=== PATIENT | male | born 1950 | race Caucasian/White ===

== ENCOUNTER 2020-12-12 13:38 | Emergency (ER) | payer SELFPAY ==
[~2020-12-12] VITALS: Ht 185 cm; Wt 185.0 kg
[2020-12-12] MEDS ORDERED: ENOXAPARIN 80 MG/0.8 ML (LOVENOX) SYR SC ONE (14:00)
[2020-12-12 14:05] LABS: BASOPHILS # (AUTO) 0.1 10^3/uL (0.0-0.1); BASOPHILS % (AUTO) 1 % (0-10); EOSINOPHILS # (AUTO) 0.1 10^3/uL (0.0-0.3); EOSINOPHILS % (AUTO) 2 % (0-10); HEMATOCRIT 39 % (40-54); HEMOGLOBIN 12.1 g/dL (13.3-17.7); LYMPHOCYTES % (AUTO) 31 % (12-44); MEAN CORPUSCULAR HEMOGLOBIN 27 pg (25-34); MEAN CORPUSCULAR HGB CONC 31 g/dL (32-36); MEAN CORPUSCULAR VOLUME 87 fL (80-99); MEAN PLATELET VOLUME 10.7 fL (9.0-12.2); MONOCYTES # (AUTO) 0.5 10^3/uL (0.0-1.0); MONOCYTES % (AUTO) 8 % (0-12); NEUTROPHILS # (AUTO) 3.8 10^3/uL (1.8-7.8); NEUTROPHILS % (AUTO) 59 % (42-75); PLATELET COUNT 226 10^3/uL (130-400); WHITE BLOOD COUNT 6.5 10^3/uL (4.3-11.0)
[2020-12-12 14:18] LABS: CHLORIDE 108 MMOL/L (98-107); SODIUM 141 MMOL/L (135-145)
[2020-12-12 14:19] LABS: CALCIUM 8.6 MG/DL (8.5-10.1); INR 0.9 (0.8-1.4); PROTHROMBIN TIME PATIENT 12.8 SEC (12.2-14.7)
[2020-12-12 14:20] LABS: GLUCOSE 109 MG/DL (70-105)
[2020-12-12 14:21] LABS: TOTAL PROTEIN 6.8 GM/DL (6.4-8.2)
[2020-12-12 14:22] LABS: BILIRUBIN,TOTAL 0.2 MG/DL (0.1-1.0); CARBON DIOXIDE 24 MMOL/L (21-32)
[2020-12-12 14:24] LABS: ALKALINE PHOSPHATASE 63 U/L (40-136); GFR ESTIMATED > 60
[2020-12-12 14:25] LABS: BUN/CREATININE RATIO 27
[2020-12-12 14:27] LABS: ALANINE AMINOTRANSFERASE 18 U/L (0-55); MAGNESIUM 2.6 MG/DL (1.6-2.4)
--- NOTE | 2020-12-12 14:29 | Diagnostic Imaging Report ---
INDICATION: Chest pain. FINDINGS: Lungs are clear. Cardiomediastinal and hilar contours are normal. No failure, effusion, or pneumothorax. IMPRESSION: Normal frontal chest. Dictated by: Dictated on workstation # [id number]
--- NOTE | 2020-12-12 14:46 | ED Chest Pain ---
General Chief Complaint: Cardiac/General Problems Stated Complaint: AFIB Nursing Triage Note: [facility] AFIB Nursing Sepsis Screen: No Definite Risk Source: patient Exam Limitations: no limitations History of Present Illness Date Seen by Provider: Dec 12, 2020 Time Seen by Provider: 13:48 Initial Comments Here with report of anxious feeling throughout his body and pinpoint chest pain at the area of the left breast. Has been going on throughout the day. Went to [facility] and found to be in atrial fibrillation with rapid ventricular response. Patient does not normally have that. Patient did take 325 mg of aspirin this morning because of this. Does have concerns about radio magnetic interference of the body and tries to stay away from towns and congested areas where that is increased. Eats organically and tries to stay healthy. Not currently on any medications and has only had 1 surgery for tonsils in his lifetime. States chest pain is fleeting and intermittent. Patient noted to be in atrial fibrillation with rapid ventricular response on arrival. Timing/Duration: changing over time, 12-24 hours Severity/Quality: mild, sharp Location: central (Left breast) Radiation: no radiation Prior CP/Workup: no prior chest pain, no prior cardiac workup ASA po HEATER INSTALLER: Yes NTG SL HEATER INSTALLER: No Associated Symptoms: No back pain, No diaphoresis, No dizziness, No fever/ chills, No nausea/vomiting, No shortness of breath, No weakness Allergies and Home Medications Allergies Coded Allergies: No Known Drug Allergies (Unverified , 12/12/20) Patient Home Medication List Home Medication List Reviewed: Yes Review of Systems Review of Systems Constitutional: see HPI; No chills, No fever EENTM: No Nose Congestion, No Throat Pain Respiratory: Denies Cough, Denies Shortness of Air Cardiovascular: Chest Pain, Irregular Heart Rate, Palpitations Gastrointestinal: Denies Nausea, Denies Vomiting Genitourinary: No Symptoms Reported Musculoskeletal: No back pain, No muscle pain Skin: no symptoms reported Psychiatric/Neurological: Anxiety; Denies Headache, Denies Weakness All Other Systems Reviewed Negative Unless Noted: Yes Past Zmpihus-Xqlnur-Bvtcwj Hx Past Med/Social Hx: Reviewed Nursing Past Med/Soc Hx Patient Social History Alcohol Use: Denies Use Smoking Status: Never a Smoker Recent Infectious Disease Expo: No Past Medical History Surgeries: Yes Adenoidectomy, Tonsillectomy Respiratory: No Cardiac: No Neurological: No Genitourinary: No Gastrointestinal: No Musculoskeletal: No Endocrine: No HEENT: No Cancer: No Psychosocial: No Family Medical History Reviewed Nursing Family Hx No Pertinent Family Hx Physical Exam Vital Signs Vital Signs - First Documented 12/12/20 13:42 Temp 36.6 Pulse 117 Resp 18 B/P (MAP) 131/95 (107) Pulse Ox 100 Capillary Refill : Less Than 3 Seconds Height, Weight, BMI Height: '" Weight: lbs. oz. kg; 54.00 BMI Method: General Appearance: No Apparent Distress, WD/WN HEENT: PERRL/EOMI, Pharynx Normal Neck: Non Tender, Supple Respiratory: Lungs Clear, Normal Breath Sounds Cardiovascular: Irregularly Irregular, Tachycardia Gastrointestinal: Non Tender, Soft Extremity: Normal Range of Motion, Non Tender Neurologic/Psychiatric: Alert, Oriented x3 Skin: Normal Color, Warm/Dry Progress/Results/Core Measures Results/Orders Lab Results Laboratory Tests Test 12/12/20 13:50 Range/Units White Blood Count 6.5 4.3-11.0 10^3/uL Red Blood Count 4.46 4.30-5.52 10^6/uL Hemoglobin 12.1 L 13.3-17.7 g/dL Hematocrit 39 L 40-54 % Mean Corpuscular Volume 87 80-99 fL Mean Corpuscular Hemoglobin 27 25-34 pg Mean Corpuscular Hemoglobin Concent 31 L 32-36 g/dL Red Cell Distribution Width 17.2 H 10.0-14.5 % Platelet Count 226 130-400 10^3/uL Mean Platelet Volume 10.7 9.0-12.2 fL Immature Granulocyte % (Auto) 0 % Neutrophils (%) (Auto) 59 42-75 % Lymphocytes (%) (Auto) 31 12-44 % Monocytes (%) (Auto) 8 0-12 % Eosinophils (%) (Auto) 2 0-10 % Basophils (%) (Auto) 1 0-10 % Neutrophils # (Auto) 3.8 1.8-7.8 10^3/uL Lymphocytes # (Auto) 2.0 1.0-4.0 10^3/uL Monocytes # (Auto) 0.5 0.0-1.0 10^3/uL Eosinophils # (Auto) 0.1 0.0-0.3 10^3/uL Basophils # (Auto) 0.1 0.0-0.1 10^3/uL Immature Granulocyte # (Auto) 0.0 0.0-0.1 10^3/uL Prothrombin Time 12.8 12.2-14.7 SEC INR Comment 0.9 0.8-1.4 Activated Partial Thromboplast Time 27 24-35 SEC Sodium Level 141 135-145 MMOL/L Potassium Level 4.0 3.6-5.0 MMOL/L Chloride Level 108 H 98-107 MMOL/L Carbon Dioxide Level 24 21-32 MMOL/L Anion Gap 9 5-14 MMOL/L Blood Urea Nitrogen 27 H 7-18 MG/DL Creatinine 1.00 0.60-1.30 MG/DL Estimat Glomerular Filtration Rate > 60 BUN/Creatinine Ratio 27 Glucose Level 109 H 70-105 MG/DL Calcium Level 8.6 8.5-10.1 MG/DL Corrected Calcium 8.6 8.5-10.1 MG/DL Magnesium Level 2.6 H 1.6-2.4 MG/DL Total Bilirubin 0.2 0.1-1.0 MG/DL Aspartate Amino Transf (AST/SGOT) 22 5-34 U/L Alanine Aminotransferase (ALT/SGPT) 18 0-55 U/L Alkaline Phosphatase 63 40-136 U/L Myoglobin 46.7 10.0-92.0 NG/ML Troponin I < 0.028 <0.028 NG/ML B-Type Natriuretic Peptide 246.6 H <100.0 PG/ML Total Protein 6.8 6.4-8.2 GM/DL Albumin 4.0 3.2-4.5 GM/DL My Orders Orders - LAYLA QUINTERO MD Metoprolol Succinate (Xl) Tab (Toprol Xl (12/12/20 14:00) Enoxaparin Injection (Lovenox Injection) (12/12/20 14:00) Medications Given in ED Current Medications Medications Dose Ordered Sig/Obie Route Start Time Stop Time Status Last Admin Dose Admin Enoxaparin Sodium 70 mg ONCE ONCE SC 12/12/20 14:00 12/12/20 14:01 DC 12/12/20 14:17 70 MG Metoprolol Succinate 25 mg ONCE ONCE PO 12/12/20 14:00 12/12/20 14:01 DC 12/12/20 14:16 25 MG Vital Signs/I&O 12/12/20 13:42 Temp 36.6 Pulse 117 Resp 18 B/P (MAP) 131/95 (107) Pulse Ox 100 Blood Pressure Mean: 107 Progress Progress Note : Progress Note Seen and evaluated. IV, labs, EKG, chest x-ray ordered. No ASA as patient had that already today. No need for nitro as he has no chest pain. 1353: Patient converted on own to sinus rhythm. 1357: I did discuss the case with Dr. Gonsalez. We will initiate Toprol-XL 25 mg p.o. now as well as Lovenox 70 mg subcu (1 mg/kg) and evaluate labs. If patient remains in sinus rhythm, we will consider outpatient therapy if labs are okay and have him follow-up with Dr. Gonsalez this week. Patient would prefer this if at all possible. Monitor patient. 1500: I did review the case with Dr. Verduzco after labs reviewed. No significant findings currently. We will continue him outpatient Eliquis 5 mg p.o. twice daily as well as Toprol-XL 25 mg daily. I have made a call to [facility] to see if they can prescribe since he was seen there today. Discharged home with return precautions. Patient verbalized understanding of instructions and agreement with plan. Initial ECG Impression Date: Dec 12, 2020 Initial ECG Impression Time: 13:45 Initial ECG Rate: 113 Initial ECG Rhythm: A Fib/Flutter Initial ECG Impression: Atrial Fibrillation w/RVR Comment Atrial fibrillation with rapid ventricular response. Normal axis. No evidence of ST elevation [place]. No previous available for comparison. Interpreted by me. Diagnostic Imaging Diagonstic Imaging: Xray Plain Films/CT/US/NM/MRI: chest Comments [facility] [place], [place] NAME: ROBERT BOWERS [facility] REC#: [id number] PT STATUS: REG ER : 1950 PHYSICIAN: ROBERT PEÑALOZA APRN ADMIT DATE: 12/12/20/ER Draft Date of Exam:12/12/20 CHEST 1 VIEW, AP/PA ONLY INDICATION: Chest pain. FINDINGS: Lungs are clear. Cardiomediastinal and hilar contours are normal. No failure, effusion, or pneumothorax. IMPRESSION: Normal frontal chest. Dictated on workstation # [id number] Dict: 12/12/20 1425 Trans: 12/12/20 1429 [id number] [id number] Interpreted by: DEENA SCHAFFER Electronically signed by: Departure Impression Primary Impression: Paroxysmal atrial fibrillation Disposition: 01 HOME, SELF-CARE Condition: Improved Departure-Patient Inst. Decision time for Depature: 15:04 Referrals: JUSTINA GARCIA MD, BASHAR J MD NO,LOCAL PHYSICIAN (PCP) Primary Care Physician Patient Instructions: Atrial Fibrillation (DC) Add. Discharge Instructions: All discharge instructions reviewed with patient and/or family. Voiced understanding. You need to call and make appointment with Dr. Gonsalez for next week. Call his office today or first thing in the morning for appointment next week and let them know that the case was discussed with him and he wants to see you then. Take medications as directed. Follow-up with [facility] for recheck and further evaluation as well. They should call you for appointment but you may need to call in a few days if you have not heard from them. Return for worse pain, breathing problems, weakness or other concerns as needed. Copy Copies To 1: NATALYA VERDUZCO MD Copies To 2: JUSTINA GARCIA MD, TIMOTHY D MD Dec 12, 2020 14:46
[2020-12-12 15:20] VITALS: BP 129/92
== END 2020-12-12 15:26 | disposition home or self-care (01) ==
LOC: ER 13:41
DX: I48.0 Paroxysmal atrial fibrillation (principal); F41.9 Anxiety disorder, unspecified
CPT/HCPCS: 36415; 71045; 80053; 83735; 83874; 83880; 84484; 85025; 85610; 85730; 93005; 93041

== ENCOUNTER 2021-06-04 11:48 | Emergency (ER) | payer OTHER ==
[~2021-06-04] VITALS: Ht 180.3 cm; Wt 70.0 kg
[2021-06-04 12:12] LABS: BASOPHILS # (AUTO) 0.1 10^3/uL (0.0-0.1); BASOPHILS % (AUTO) 1 % (0-10); EOSINOPHILS % (AUTO) 1 % (0-10); HEMATOCRIT 34 % (40-54); HEMOGLOBIN 10.1 g/dL (13.3-17.7); LYMPHOCYTES # (AUTO) 1.3 10^3/uL (1.0-4.0); LYMPHOCYTES % (AUTO) 24 % (12-44); MEAN CORPUSCULAR HEMOGLOBIN 24 pg (25-34); MEAN CORPUSCULAR HGB CONC 30 g/dL (32-36); MEAN CORPUSCULAR VOLUME 80 fL (80-99); MEAN PLATELET VOLUME 10.2 fL (9.0-12.2); MONOCYTES # (AUTO) 0.5 10^3/uL (0.0-1.0); MONOCYTES % (AUTO) 9 % (0-12); NEUTROPHILS # (AUTO) 3.5 10^3/uL (1.8-7.8); NEUTROPHILS % (AUTO) 66 % (42-75); PLATELET COUNT 240 10^3/uL (130-400); WHITE BLOOD COUNT 5.4 10^3/uL (4.3-11.0)
[2021-06-04] MEDS ORDERED: ASPIRIN 81 MG CHEW (CHILDREN'S ASA) PO ONE (12:15)
[2021-06-04 12:34] LABS: CHLORIDE 106 MMOL/L (98-107); INR 1.1 (0.8-1.4); POTASSIUM 4.4 MMOL/L (3.6-5.0); PROTHROMBIN TIME PATIENT 14.3 SEC (12.2-14.7); SODIUM 139 MMOL/L (135-145)
[2021-06-04 12:35] LABS: CALCIUM 8.6 MG/DL (8.5-10.1)
[2021-06-04 12:36] LABS: GLUCOSE 101 MG/DL (70-105); TOTAL PROTEIN 6.5 GM/DL (6.4-8.2)
[2021-06-04 12:37] LABS: CARBON DIOXIDE 22 MMOL/L (21-32)
[2021-06-04 12:38] LABS: BILIRUBIN,TOTAL 0.3 MG/DL (0.1-1.0)
[2021-06-04 12:40] LABS: ALKALINE PHOSPHATASE 69 U/L (40-136); CREATININE SERUM 0.97 MG/DL (0.60-1.30); GFR ESTIMATED 76
[2021-06-04 12:41] LABS: BUN/CREATININE RATIO 21
[2021-06-04 12:43] LABS: ALANINE AMINOTRANSFERASE 22 U/L (0-55); MAGNESIUM 2.4 MG/DL (1.6-2.4)
--- NOTE | 2021-06-04 12:43 | Diagnostic Imaging Report ---
INDICATION: Chest pain. TECHNIQUE: Single AP view of the chest is obtained with comparison made to study of 12/12/2020. FINDINGS: Heart size is at the upper limits of normal. Pulmonary vascularity is unremarkable. There is air trapping in the upper lobes, bilaterally. There is an approximately 1 cm nodular focus in the left suprahilar region which was not clearly evident on the previous study. No other infiltrate or significant pleural abnormality is identified. IMPRESSION: Background emphysema with possible developing nodule in the left suprahilar region. CT imaging of the chest is recommended for assessment. Dictated by: Dictated on workstation # [id number]
--- NOTE | 2021-06-04 13:50 | ED Chest Pain ---
General Chief Complaint: Chest Pain Stated Complaint: CHEST PRESSURE Nursing Triage Note: Pt ambulatory into ER with complaint of Intermittent Chest Pressure x1 Month. Pt states that it seems to be worse when its hot. Pt states that he is camping without AC. Pt states that today its at a 2/10. Pt states that he was at [facility] and they sent him here. Source: patient Exam Limitations: no limitations History of Present Illness Date Seen by Provider: Jun 04, 2021 Time Seen by Provider: 12:35 Initial Comments Here with report of intermittent chest pressure over the last month that is noted more with activity and resolves with rest. Does have history of atrial fibrillation. He is on Eliquis and takes that as prescribed. He is also on metoprolol that he takes as prescribed. He went to [facility] today and was noted to have intermittent chest pressure there. He had a pressure of 2 out of 10 and was sent here for further evaluation. He does follow with Dr. Sommers at [facility]. Timing/Duration: intermittent, other (1 month) Severity/Quality: mild, pressure Location: central (Left-sided) Radiation: no radiation Activities at Onset: activity Prior CP/Workup: no prior chest pain Modifying Factors: worse with exercise; improves with rest ASA po SOCIAL SCIENCE PROFESSOR: No NTG SL SOCIAL SCIENCE PROFESSOR: No Associated Symptoms: No abdominal pain, No diaphoresis, No dizziness, No fatigue, No fever/chills, No heartburn, No nausea/vomiting, No shortness of breath, No weakness Allergies and Home Medications Allergies Coded Allergies: No Known Drug Allergies (Unverified , 12/12/20) Patient Home Medication List Home Medication List Reviewed: Yes Review of Systems Review of Systems Constitutional: see HPI; No chills, No fever EENTM: No Symptoms Reported Respiratory: See HPI Cardiovascular: See HPI Gastrointestinal: No Symptoms Reported Genitourinary: No Symptoms Reported All Other Systems Reviewed Negative Unless Noted: Yes Past Jzmknop-Hncbzr-Xjhsqg Hx Patient Social History Tobacco Use?: No Use of E-Cig and/or Vaping dev: No Substance use?: No Alcohol Use?: No Pt feels they are or have been: No Immunizations Up To Date Influenza Vaccine Up-to-Date: No; Not Current Past Medical History Surgeries: Yes Adenoidectomy, Tonsillectomy Respiratory: No Cardiac: No Neurological: No Genitourinary: No Gastrointestinal: No Musculoskeletal: No Endocrine: No HEENT: No Cancer: No Psychosocial: No Integumentary: No Family Medical History Reviewed Nursing Family Hx No Pertinent Family Hx Physical Exam Vital Signs Vital Signs - First Documented Capillary Refill : Less Than 3 Seconds Height, Weight, BMI Height: '" Weight: lbs. oz. kg; 21.00 BMI Method: General Appearance: No Apparent Distress, WD/WN HEENT: PERRL/EOMI, Pharynx Normal Neck: Non Tender, Supple Respiratory: Lungs Clear, Normal Breath Sounds Cardiovascular: No Murmur, Irregularly Irregular Gastrointestinal: Non Tender, Soft Extremity: Normal Range of Motion, Non Tender Neurologic/Psychiatric: Alert, Oriented x3 Skin: Normal Color, Warm/Dry Progress/Results/Core Measures Results/Orders Lab Results Laboratory Tests Test 06/04/21 12:06 Range/Units White Blood Count 5.4 4.3-11.0 10^3/uL Red Blood Count 4.18 L 4.30-5.52 10^6/uL Hemoglobin 10.1 L 13.3-17.7 g/dL Hematocrit 34 L 40-54 % Mean Corpuscular Volume 80 80-99 fL Mean Corpuscular Hemoglobin 24 L 25-34 pg Mean Corpuscular Hemoglobin Concent 30 L 32-36 g/dL Red Cell Distribution Width 16.4 H 10.0-14.5 % Platelet Count 240 130-400 10^3/uL Mean Platelet Volume 10.2 9.0-12.2 fL Immature Granulocyte % (Auto) 0 % Neutrophils (%) (Auto) 66 42-75 % Lymphocytes (%) (Auto) 24 12-44 % Monocytes (%) (Auto) 9 0-12 % Eosinophils (%) (Auto) 1 0-10 % Basophils (%) (Auto) 1 0-10 % Neutrophils # (Auto) 3.5 1.8-7.8 10^3/uL Lymphocytes # (Auto) 1.3 1.0-4.0 10^3/uL Monocytes # (Auto) 0.5 0.0-1.0 10^3/uL Eosinophils # (Auto) 0.0 0.0-0.3 10^3/uL Basophils # (Auto) 0.1 0.0-0.1 10^3/uL Immature Granulocyte # (Auto) 0.0 0.0-0.1 10^3/uL Prothrombin Time 14.3 12.2-14.7 SEC INR Comment 1.1 0.8-1.4 Activated Partial Thromboplast Time 31 24-35 SEC Sodium Level 139 135-145 MMOL/L Potassium Level 4.4 3.6-5.0 MMOL/L Chloride Level 106 98-107 MMOL/L Carbon Dioxide Level 22 21-32 MMOL/L Anion Gap 11 5-14 MMOL/L Blood Urea Nitrogen 20 H 7-18 MG/DL Creatinine 0.97 0.60-1.30 MG/DL Estimat Glomerular Filtration Rate 76 BUN/Creatinine Ratio 21 Glucose Level 101 70-105 MG/DL Calcium Level 8.6 8.5-10.1 MG/DL Corrected Calcium 8.6 8.5-10.1 MG/DL Magnesium Level 2.4 1.6-2.4 MG/DL Total Bilirubin 0.3 0.1-1.0 MG/DL Aspartate Amino Transf (AST/SGOT) 23 5-34 U/L Alanine Aminotransferase (ALT/SGPT) 22 0-55 U/L Alkaline Phosphatase 69 40-136 U/L Myoglobin 73.8 10.0-92.0 NG/ML Troponin I < 0.028 <0.028 NG/ML B-Type Natriuretic Peptide 457.6 H <100.0 PG/ML Total Protein 6.5 6.4-8.2 GM/DL Albumin 4.0 3.2-4.5 GM/DL My Orders Orders - LAYLA QUINTERO MD Cbc With Automated Diff (06/04/21 12:02) Magnesium (06/04/21 12:02) Chest 1 View, Ap/Pa Only (06/04/21 12:02) Ekg Tracing (06/04/21 12:02) Comprehensive Metabolic Panel (06/04/21 12:02) Myoglobin Serum (06/04/21 12:02) Protime With Inr (06/04/21 12:02) Partial Thromboplastin Time (06/04/21 12:02) O2 (06/04/21 12:02) Monitor-Rhythm Ecg Trace Only (06/04/21 12:02) Lipid Panel (06/05/21 06:00) Ed Iv/Invasive Line Start (06/04/21 12:02) BNP (06/04/21 12:02) Aspirin Chewable Tablet (Baby Aspirin Ch (06/04/21 12:15) Troponin I (06/04/21 12:06) Ct Chest Wo (06/04/21 13:57) Medications Given in ED Current Medications Medications Dose Ordered Sig/Obie Route Start Time Stop Time Status Last Admin Dose Admin Aspirin 324 mg ONCE ONCE PO 06/04/21 12:15 06/04/21 12:16 DC 06/04/21 12:36 324 MG Vital Signs/I&O 06/04/21 06/04/21 12:55 12:55 Temp 36.7 Pulse 89 Resp 20 B/P (MAP) 165/100 (121) Pulse Ox 100 O2 Delivery Room Air Room Air Blood Pressure Mean: 121 Progress Progress Note : Progress Note Seen and evaluated. IV, labs, EKG and chest x-ray ordered. Monitor patient. 1325: X-ray reviewed and there is lung nodule that is new from December of that radiology is recommending CT scan on. I did discuss this with the patient and his family. He is hesitant but would like to think about it more. 1355: Patient did discuss financial assistance with the registration team and ultimately has decided to go ahead and do CT scan. He is hesitant due to concerns about electromechanical interference. That being said he is also concerned about the nodule and will go ahead and get the CT scan. Initial labs and work-up are nonconcerning and patient has known atrial fibrillation that is currently controlled with metoprolol and Eliquis. Monitor patient. 1530: CT scan complete and nodule on x-ray is not showing up on CT scan and believed to be superimposed tissue. Another benign nodule noted. Overall he is without chest pain and feeling better now. He has appointment with Dr. Verduzco on the and will keep that. I will send a copy of the chart to him. Discharged home with return precautions. Patient verbalized understanding instructions and agreement with plan. Initial ECG Impression Date: Jun 04, 2021 Initial ECG Impression Time: 11:57 Initial ECG Rate: 109 Initial ECG Rhythm: A Fib/Flutter Initial ECG Comparisson: Unchanged (Similar to previous of 12/12/2020.) Comment Atrial fibrillation with PVC noted. Normal axis. No evidence of ST elevation [place]. Interpreted by me. Diagnostic Imaging Diagonstic Imaging: Xray Plain Films/CT/US/NM/MRI: chest Comments [facility] [place], [place] NAME: ROBERT BOWERS [facility] REC#: [id number] PT STATUS: REG ER : 1950 PHYSICIAN: LAYLA QUINTERO MD ADMIT DATE: 06/04/21/ER Signed Date of Exam:06/04/21 CHEST 1 VIEW, AP/PA ONLY INDICATION: Chest pain. TECHNIQUE: Single AP view of the chest is obtained with comparison made to study of 12/12/2020. FINDINGS: Heart size is at the upper limits of normal. Pulmonary vascularity is unremarkable. There is air trapping in the upper lobes, bilaterally. There is an approximately 1 cm nodular focus in the left suprahilar region which was not clearly evident on the previous study. No other infiltrate or significant pleural abnormality is identified. IMPRESSION: Background emphysema with possible developing nodule in the left suprahilar region. CT imaging of the chest is recommended for assessment. Dictated by: Dictated on workstation # [id number] Dict: 06/04/21 1239 Trans: 06/04/21 1318 AS6 [id number] Interpreted by: DEENA BRAND MD Electronically signed by: DEENA BRAND MD 06/04/21 1318 Diagonstic Imaging: CT Plain Films/CT/US/NM/MRI: chest Comments [facility] [address]. [place], [place] NAME: ROBERT BOWERS [facility] REC#: [id number] PT STATUS: REG ER : 1950 PHYSICIAN: LAYLA QUINTERO MD ADMIT DATE: 06/04/21/ER Draft Date of Exam:06/04/21 CT CHEST WO PROCEDURE: CT chest without contrast. TECHNIQUE: Multiple contiguous axial images were obtained through the chest without the use of intravenous contrast. Auto Exposure Controls were utilized during the CT exam to meet ALARA standards for radiation dose reduction. INDICATION: Lung nodule COMPARISON: The study interpreted in correlation with an earlier performed chest x-ray. There is no left lung mass. In particular, the area of potential cavitary lesion in the suprahilar left upper lobe has a normal appearance at CT. This likely had reflected regional curvilinear vascular superimposition. The patient does have a tiny 5 to 6 mm nodule in the right middle lobe associated with the minor fissure and has a relatively lucent component posteriorly and this is most suggestive of an intramammary lymph node. No spiculated lesion. No evidence for lymphadenopathy. The lungs are hyperexpanded with no evidence for focal pneumonia or pulmonary edema. There is no endotracheal or endobronchial filling defect. There is no thoracic lymphadenopathy. There is no effusion or pneumothorax. There is a tiny hiatal hernia. The upper abdomen shows intact adrenal glands with no ascites, fluid collection or inflammatory process. The bony structures and the chest wall appeared nonacute. IMPRESSION: No evidence of left lung mass. In particular, the level of the radiographic density appears normal. This likely had reflected superimposition. A tiny roughly 5 mm right lung nodule in the middle lobe associated with the fissure most suggestive of a benign intramammary lymph node. No suspicious lesion and no acute appearing abnormality in this patient with clear hyperexpanded lungs otherwise. Dictated on workstation # [id number] Dict: 06/04/21 1450 Trans: 06/04/21 1457 [facility] [id number] Interpreted by: DEENA SCHAFFER Electronically signed by: Departure Impression Primary Impression: Chest pain Qualified Codes: R07.9 - Chest pain, unspecified Additional Impression: Atrial fibrillation Qualified Codes: I48.91 - Unspecified atrial fibrillation Disposition: 01 HOME, SELF-CARE Condition: Improved Departure-Patient Inst. Decision time for Depature: 15:35 Referrals: NATALYA VERDUZCO MD NO,LOCAL PHYSICIAN (PCP) Primary Care Physician Patient Instructions: Atrial Fibrillation (DC), Chest Pain (DC) Add. Discharge Instructions: All discharge instructions reviewed with patient and/or family. Voiced understanding. Continue home medications as previously prescribed. Follow-up with Dr. Verduzco on the as scheduled. Return for persistent chest pain, weakness, sweating, nausea, pain radiating from the chest to other areas or other concerns as needed. Continue normal diet. Avoid the heat. Copy Copies To 1: NATALYA VERDUZCO MD Copies To 2: GARRY AIKEN TIMOTHY D MD Jun 04, 2021 13:50
--- NOTE | 2021-06-04 14:58 | Diagnostic Imaging Report ---
PROCEDURE: CT chest without contrast. TECHNIQUE: Multiple contiguous axial images were obtained through the chest without the use of intravenous contrast. Auto Exposure Controls were utilized during the CT exam to meet ALARA standards for radiation dose reduction. INDICATION: Lung nodule COMPARISON: The study interpreted in correlation with an earlier performed chest x-ray. There is no left lung mass. In particular, the area of potential cavitary lesion in the suprahilar left upper lobe has a normal appearance at CT. This likely had reflected regional curvilinear vascular superimposition. The patient does have a tiny 5 to 6 mm nodule in the right middle lobe associated with the minor fissure and has a relatively lucent component posteriorly and this is most suggestive of an intramammary lymph node. No spiculated lesion. No evidence for lymphadenopathy. The lungs are hyperexpanded with no evidence for focal pneumonia or pulmonary edema. There is no endotracheal or endobronchial filling defect. There is no thoracic lymphadenopathy. There is no effusion or pneumothorax. There is a tiny hiatal hernia. The upper abdomen shows intact adrenal glands with no ascites, fluid collection or inflammatory process. The bony structures and the chest wall appeared nonacute. IMPRESSION: No evidence of left lung mass. In particular, the level of the radiographic density appears normal. This likely had reflected superimposition. A tiny roughly 5 mm right lung nodule in the middle lobe associated with the fissure most suggestive of a benign intramammary lymph node. No suspicious lesion and no acute appearing abnormality in this patient with clear hyperexpanded lungs otherwise. Dictated by: Dictated on workstation # [id number]
[2021-06-04 15:59] VITALS: BP 139/101
== END 2021-06-04 15:58 | disposition home or self-care (01) ==
LOC: EDUNIT# 11:48 → ER 11:51
DX: I48.91 Unspecified atrial fibrillation (principal); Z79.01 Long term (current) use of anticoagulants; Z79.899 Other long term (current) drug therapy
CPT/HCPCS: 36415; 71045; 71250; 80053; 83735; 83874; 83880; 84484; 85025; 85610; 85730; 93005; 93041

== ENCOUNTER 2021-09-07 19:45 | Observation (INO) | payer MEDICARE, OTHER ==
[~2021-09-07] VITALS: Ht 180 cm; Wt 74.9 kg
[2021-09-07] MEDS ORDERED: NITROGLYCERIN 2% OINT 1 GM UNIT DOSE PACKET TOP STA (19:53)
--- NOTE | 2021-09-07 20:00 | ED Chest Pain ---
General Stated Complaint: CP/ARRYTHMIA Source: patient History of Present Illness Date Seen by Provider: Sep 07, 2021 Time Seen by Provider: 19:51 Initial Comments PT ARRIVES VIA POV FROM HOME C/O CHEST PAIN SINCE THIS AM OR MID DAY TODAY--UNABLE TO STATE APPROXIMATE TIME PAIN IS IN LEFT UPPER CHEST, AND NOW RADIATING TO LEFT NECK AND LEFT JAW / SIDE OF FACE. PAIN DID COME AND GO, BUT NOW IS CONSTANT RATES PAIN 3 1/2-4 NO SWEATS NO NAUSEA/VOMITING NO SWELLING IN LEGS/ FEET OR PAIN IN CALVES HAS HAD A LITTLE LIGHTHEADEDNESS AND SLIGHT SHORTNESS OF BREATH OFF AND ON FOR THE LAST 2 WEEKS, BUT NOT RIGHT NOW STATES BP HAS BEEN IN 110'S-120 SYSTOLIC, AND HR HAS BEEN IN 60'S-80'S PT HAS HISTORY OF HTN AND ATRIAL FIBRILLATION--DX IN DECEMBER THIS YEAR TOOK TOPROL THIS AM, AND HAS HAD BOTH DOSES OF ELIQUIS TODAY TOOK 650 MG ASPIRIN AROUND 1500 TODAY, DOES NOT NORMALLY TAKE ASPIRIN DENIES ANY MISSED DOSES OF MEDICATIONS STATES HE HAS NEVER HAD A CARDIAC CATH LAST SAW DR. SWAN IN DECEMBER, AND MISSED FOLLOW UP APPOINTMENT ONLY VISITS HERE WERE IN DECEMBER AND MAY OF THIS YEAR--FOR THESE SAME COMPLAINTS OF CHEST PAIN--TREATED AND RELEASED, NO HOSPITAL ADMITS. PCP: MAURILIO COREA OUTER DIAMETER GRINDER: DR. SWAN Allergies and Home Medications Allergies Coded Allergies: No Known Drug Allergies (Unverified , 12/12/20) Patient Home Medication List Home Medication List Reviewed: Yes Review of Systems Review of Systems Constitutional: see HPI, dizziness EENTM: See HPI Respiratory: See HPI, Shortness of Air Cardiovascular: See HPI, Chest Pain; Denies Edema; Lightheadedness; Denies Palpitations, Denies Syncope Gastrointestinal: No Symptoms Reported; Denies Abdominal Pain, Denies Nausea, Denies Vomiting Genitourinary: No Symptoms Reported Musculoskeletal: see HPI Skin: no symptoms reported Psychiatric/Neurological: No Symptoms Reported Endocrine: No Symptoms Reported Hematologic/Lymphatic: No Symptoms Reported Past Hqrwuva-Uyysns-Bahujg Hx Patient Social History Tobacco Use?: No Substance use?: No Alcohol Use?: Yes (OCCASIONALLY DRANK BEER IN PAST, BUT NONE FOR 12 YEARS) Alcohol type: Beer Alcohol Frequency: Rarely Past Medical History Surgeries: Yes Adenoidectomy, Tonsillectomy Respiratory: No Cardiac: Yes Atrial Fibrillation, Hypertension Neurological: No Genitourinary: No Gastrointestinal: No Musculoskeletal: No Endocrine: No HEENT: Yes (S/P T&A) Tonsilitis Cancer: No Psychosocial: No Integumentary: No Blood Disorders: No Family Medical History No Pertinent Family Hx Physical Exam Vital Signs Vital Signs - First Documented 09/07/21 19:52 Temp 36.6 Pulse 89 Resp 20 B/P (MAP) 180/109 (132) Pulse Ox 100 O2 Delivery Room Air Capillary Refill : Height, Weight, BMI Height: '" Weight: lbs. oz. kg; 21.00 BMI Method: General Appearance: No Apparent Distress, WD/WN, Anxious (MILDLY ), Thin HEENT: PERRL/EOMI Neck: Full Range of Motion, Normal Inspection, Non Tender, Supple Respiratory: Chest Non Tender, Normal Breath Sounds, No Accessory Muscle Use, No Respiratory Distress Cardiovascular: No Edema, No JVD, No Murmur, Normal Peripheral Pulses, Irregularly Irregular Gastrointestinal: Normal Bowel Sounds, No Organomegaly, No Pulsatile Mass, Non Tender, Soft Extremity: Normal Capillary Refill, Normal Inspection, Normal Range of Motion, Non Tender, No Calf Tenderness, No Pedal Edema Neurologic/Psychiatric: Alert, Oriented x3, No Motor/Sensory Deficits, billing assistant II- XII Norm as Tested Skin: Normal Color, Warm/Dry Progress/Results/Core Measures Results/Orders Lab Results Laboratory Tests Test 09/07/21 19:55 Range/Units White Blood Count 5.8 4.3-11.0 10^3/uL Red Blood Count 4.08 L 4.30-5.52 10^6/uL Hemoglobin 9.3 L 13.3-17.7 g/dL Hematocrit 32 L 40-54 % Mean Corpuscular Volume 77 L 80-99 fL Mean Corpuscular Hemoglobin 23 L 25-34 pg Mean Corpuscular Hemoglobin Concent 30 L 32-36 g/dL Red Cell Distribution Width 16.3 H 10.0-14.5 % Platelet Count 245 130-400 10^3/uL Mean Platelet Volume 10.7 9.0-12.2 fL Immature Granulocyte % (Auto) 0 % Neutrophils (%) (Auto) 58 42-75 % Lymphocytes (%) (Auto) 32 12-44 % Monocytes (%) (Auto) 8 0-12 % Eosinophils (%) (Auto) 1 0-10 % Basophils (%) (Auto) 1 0-10 % Neutrophils # (Auto) 3.4 1.8-7.8 10^3/uL Lymphocytes # (Auto) 1.8 1.0-4.0 10^3/uL Monocytes # (Auto) 0.5 0.0-1.0 10^3/uL Eosinophils # (Auto) 0.1 0.0-0.3 10^3/uL Basophils # (Auto) 0.1 0.0-0.1 10^3/uL Immature Granulocyte # (Auto) 0.0 0.0-0.1 10^3/uL Prothrombin Time 14.2 12.2-14.7 SEC INR Comment 1.1 0.8-1.4 Activated Partial Thromboplast Time 32 24-35 SEC D-Dimer < 0.27 0.00-0.49 UG/ML Sodium Level 139 135-145 MMOL/L Potassium Level 4.3 3.6-5.0 MMOL/L Chloride Level 106 98-107 MMOL/L Carbon Dioxide Level 21 21-32 MMOL/L Anion Gap 12 5-14 MMOL/L Blood Urea Nitrogen 20 H 7-18 MG/DL Creatinine 1.05 0.60-1.30 MG/DL Estimat Glomerular Filtration Rate 69 BUN/Creatinine Ratio 19 Glucose Level 158 H 70-105 MG/DL Calcium Level 8.5 8.5-10.1 MG/DL Corrected Calcium 8.4 L 8.5-10.1 MG/DL Magnesium Level 2.4 1.6-2.4 MG/DL Total Bilirubin 0.3 0.1-1.0 MG/DL Aspartate Amino Transf (AST/SGOT) 30 5-34 U/L Alanine Aminotransferase (ALT/SGPT) 29 0-55 U/L Alkaline Phosphatase 77 40-136 U/L Total Creatine Kinase 267 H 30-200 U/L Creatine Kinase MB 4.6 <6.6 NG/ML Myoglobin 79.1 10.0-92.0 NG/ML Troponin I < 0.028 <0.028 NG/ML B-Type Natriuretic Peptide 335.3 H <100.0 PG/ML Total Protein 6.5 6.4-8.2 GM/DL Albumin 4.1 3.2-4.5 GM/DL Amylase Level 61 25-125 U/L Lipase 32 8-78 U/L My Orders Orders - ERIC BATRES DO Cbc With Automated Diff (09/07/21 19:53) Magnesium (09/07/21 19:53) Chest 1 View, Ap/Pa Only (09/07/21 19:53) Ekg Tracing (09/07/21 19:53) Comprehensive Metabolic Panel (09/07/21 19:53) Myoglobin Serum (09/07/21 19:53) Protime With Inr (09/07/21 19:53) Partial Thromboplastin Time (09/07/21 19:53) O2 (09/07/21 19:53) Monitor-Rhythm Ecg Trace Only (09/07/21:53) Ed Iv/Invasive Line Start (09/07/21 19:53) Creatine Kinase (09/07/21 19:53) Creatine Kinase Mb (09/07/21 19:53) Lipase (09/07/21 19:53) Amylase (09/07/21 19:53) BNP (09/07/21 19:53) Nitroglycerin Ointment (Nitrobid Ointme (09/07/21 19:53) Fibrin Degradation Products (09/07/21 19:55) Troponin I (09/07/21 19:55) Vital Signs/I&O 09/07/21 19:52 Temp 36.6 Pulse 89 Resp 20 B/P (MAP) 180/109 (132) Pulse Ox 100 O2 Delivery Room Air Progress Progress Note : Progress Note GIVEN NITROPASTE FOR CP AND ELEVATED BP, PT TOOK 650 MG ASPIRIN AT 1500 TODAY, IN ADDITION TO ELIQUIS X 2 DOSES 2029--PT RATES PAIN 1/10 IN CHEST, NO LONGER IN LEFT JAW/FACE, BP DOWN TO 130'S/70'S, HR IN 70'S-80'S UNEVENTFUL ER STAY PT WISHES TO BE A FULL CODE PT IS CONCERNED ABOUT RECEIVING ANYTHING NUCLEAR OR RADIOACTIVE, ALSO CONCERNED ABOUT THINGS IN HIS FOOD, AND WANTS HIS TO BRING FOOD INTO HIM--PT STATES HE ONLY EATS ORGANIC, NON-GMO FOODS WITHOUT ANY ADDITIVES, ETC.--, HE DOES NOT TRUST / OR KNOW WHAT IS IN HOSPITAL FOOD Initial ECG Impression Date: Sep 07, 2021 Initial ECG Impression Time: 19:51 Initial ECG Rate: 92 Initial ECG Rhythm: A Fib/Flutter (WITH PVC'S) Diagnostic Imaging Comments CXR--PER RADIOLOGIST REPORT AT 2021 FINDINGS: The lungs are clear without edema or pneumonia. No pleural effusion or pneumothorax. Heart size is normal. IMPRESSION: Clear lungs. Reviewed: Reviewed by Me Departure Communication (Admissions) 2041--SPOKE WITH DR. CORDERO, HOSPITALIST FOR [facility] [place] 2042--SPOKE WITH DR. KEITH FOR CARDIOLOGY CONSULT, NO ADDITIONAL RECOMMENDATIONS AT THIS TIME. Impression Primary Impression: Chest pain Additional Impressions: HTN (hypertension) Chronic atrial fibrillation Disposition: HOME, SELF-CARE Condition: Improved Admissions Decision to Admit Reason: Admit from ER (General) Decision to Admit/Date: Sep 07, 2021 Time/Decision to Admit Time: 20:45 Departure-Patient Inst. Referrals: [facility] (PCP/Family) Primary Care Physician ERIC BATRES DO Sep 07, 2021 20:00
[2021-09-07 20:08] LABS: BASOPHILS # (AUTO) 0.1 10^3/uL (0.0-0.1); BASOPHILS % (AUTO) 1 % (0-10); EOSINOPHILS # (AUTO) 0.1 10^3/uL (0.0-0.3); EOSINOPHILS % (AUTO) 1 % (0-10); HEMATOCRIT 32 % (40-54); HEMOGLOBIN 9.3 g/dL (13.3-17.7); LYMPHOCYTES # (AUTO) 1.8 10^3/uL (1.0-4.0); LYMPHOCYTES % (AUTO) 32 % (12-44); MEAN CORPUSCULAR HEMOGLOBIN 23 pg (25-34); MEAN CORPUSCULAR HGB CONC 30 g/dL (32-36); MEAN CORPUSCULAR VOLUME 77 fL (80-99); MEAN PLATELET VOLUME 10.7 fL (9.0-12.2); MONOCYTES # (AUTO) 0.5 10^3/uL (0.0-1.0); MONOCYTES % (AUTO) 8 % (0-12); NEUTROPHILS # (AUTO) 3.4 10^3/uL (1.8-7.8); NEUTROPHILS % (AUTO) 58 % (42-75); PLATELET COUNT 245 10^3/uL (130-400); WHITE BLOOD COUNT 5.8 10^3/uL (4.3-11.0)
--- NOTE | 2021-09-07 20:16 | Diagnostic Imaging Report ---
EXAMINATION: Chest 1 view. HISTORY: Chest pain. COMPARISON: 06/04/2021. FINDINGS: The lungs are clear without edema or pneumonia. No pleural effusion or pneumothorax. Heart size is normal. IMPRESSION: Clear lungs. Dictated by: Dictated on workstation # [id number]
[2021-09-07 20:27] LABS: ALBUMIN 4.1 GM/DL (3.2-4.5); CHLORIDE 106 MMOL/L (98-107); POTASSIUM 4.3 MMOL/L (3.6-5.0); SODIUM 139 MMOL/L (135-145)
[2021-09-07 20:28] LABS: AMYLASE 61 U/L (25-125); CALCIUM 8.5 MG/DL (8.5-10.1)
[2021-09-07 20:29] LABS: GLUCOSE 158 MG/DL (70-105)
[2021-09-07 20:30] LABS: TOTAL PROTEIN 6.5 GM/DL (6.4-8.2)
[2021-09-07 20:31] LABS: CARBON DIOXIDE 21 MMOL/L (21-32)
[2021-09-07 20:33] LABS: ALKALINE PHOSPHATASE 77 U/L (40-136); CREATININE SERUM 1.05 MG/DL (0.60-1.30); GFR ESTIMATED 69
[2021-09-07 20:34] LABS: BUN/CREATININE RATIO 19
[2021-09-07 20:36] LABS: ALANINE AMINOTRANSFERASE 29 U/L (0-55); FIBRIN DEGRADATION PRODUCTS < 0.27 UG/ML (0.00-0.49); INR 1.1 (0.8-1.4); MAGNESIUM 2.4 MG/DL (1.6-2.4); PARTIAL THROMBOPLASTIN TIME 32 SEC (24-35); PROTHROMBIN TIME PATIENT 14.2 SEC (12.2-14.7)
[2021-09-07 20:37] LABS: CREATINE KINASE 267 U/L (30-200); CREATINE KINASE MB 4.6 NG/ML (<6.6); LIPASE 32 U/L (8-78)
[2021-09-07 20:38] LABS: BILIRUBIN,TOTAL 0.3 MG/DL (0.1-1.0)
[2021-09-07 22:22] VITALS: BP 135/107
[2021-09-07 22:30] VITALS: BP 120/92
[2021-09-07 22:45] VITALS: BP 123/92
[2021-09-07] MEDS ORDERED: ONDANSETRON 4 MG/2 ML (SDV) Z0FRAN IVP PRN (22:45)
[2021-09-07] MEDS ORDERED: morphine INJ 4 MG/ML 1 ML (VIAL/SYRINGE) IV PRN (22:45)
[2021-09-07] MEDS ORDERED: CATHETER FLUSH 10 ML SYR IV PRN (22:45)
[2021-09-07 23:00] VITALS: BP 126/93
[2021-09-07] MEDS ORDERED: ACETAMINOPHEN 325 MG TABLET ONE (23:15)
[2021-09-07] MEDS: ACETAMINOPHEN 325 MG TABLET PO PRN (23:16)
[2021-09-07 23:30] VITALS: BP 105/86
[2021-09-08] VITALS: BP 106/80
[2021-09-08] MEDS: NITROGLYCERIN 2% OINT 1 GM UNIT DOSE PACKET TOP SCH ×2 (02:12→07:53)
[2021-09-08 04:00] VITALS: BP 103/75
[2021-09-08] MEDS: ACETAMINOPHEN 325 MG TABLET PO PRN ×2 (04:51→09:14)
[2021-09-08 05:21] LABS: BASOPHILS % (AUTO) 1 % (0-10); EOSINOPHILS % (AUTO) 1 % (0-10); HEMATOCRIT 26 % (40-54); HEMOGLOBIN 7.8 g/dL (13.3-17.7); LYMPHOCYTES # (AUTO) 1.2 10^3/uL (1.0-4.0); LYMPHOCYTES % (AUTO) 31 % (12-44); MEAN CORPUSCULAR HEMOGLOBIN 23 pg (25-34); MEAN CORPUSCULAR HGB CONC 30 g/dL (32-36); MEAN CORPUSCULAR VOLUME 76 fL (80-99); MEAN PLATELET VOLUME 10.5 fL (9.0-12.2); MONOCYTES # (AUTO) 0.3 10^3/uL (0.0-1.0); MONOCYTES % (AUTO) 9 % (0-12); NEUTROPHILS # (AUTO) 2.2 10^3/uL (1.8-7.8); NEUTROPHILS % (AUTO) 59 % (42-75); PLATELET COUNT 198 10^3/uL (130-400); WHITE BLOOD COUNT 3.8 10^3/uL (4.3-11.0)
[2021-09-08 05:30] LABS: POTASSIUM 4.1 MMOL/L (3.6-5.0)
[2021-09-08 05:31] LABS: CALCIUM 7.9 MG/DL (8.5-10.1)
[2021-09-08 05:35] LABS: CREATININE SERUM 0.81 MG/DL (0.60-1.30)
[2021-09-08] MEDS ORDERED: CATHETER FLUSH 10 ML SYR IV SCH (06:00)
[2021-09-08 07:57] VITALS: BP 111/85
[2021-09-08] MEDS ORDERED: ASPIRIN E.C. 81 MG (ECOTRIN) TAB PO SCH (09:00)
[2021-09-08] MEDS ORDERED: MTP25TSR PO (09:46)
[2021-09-08] MEDS ORDERED: APIX5TAB PO (09:47)
--- NOTE | 2021-09-08 10:23 | Consultation-Cardiology ---
HPI-Cardiology Cardiology Consultation: Date of Consultation 09/08/2021 Date of Admission 09/07/2021 Attending Physician Javi More Jr, MD Admitting Physician [place] Consulting Physician JAVI MORE JR, MD HPI: Time Seen by a Provider: 10:19 Chief Complaint: Reason for consultation: Chest pain and atrial fibrillation. I had the pleasure of seeing Damaso in the cardiac stepdown unit today. He has a history of persistent atrial fibrillation first diagnosed around December 2020. He started having chest discomfort around this time which led to his first visit to the emergency room when he was noted to be in atrial fibrillation. At that time he was started on beta-ricki and apixaban. He then saw one of my partners in the office, Dr. Verduzco, and an echocardiogram was recommended. However, the patient never did the test and did not return to our office for follow-up. He has been in the emergency room one other time and then again yesterday with chest discomfort. He states he has a dull ache in his chest most days of the week. This seems to occur at rest and does not necessarily become any worse with exertion but at rest seems to help improve the symptom even though it comes on at rest. He does get some occasional heartburn feelings. He has also recently had trouble swallowing liquids and sometimes food feeling like these sometimes get stuck in his throat. He does not have any known history of gastroesophageal reflux disease but had not been seen physicians until this year when he started having this chest pain. He has had some intermittent lightheade d spells. He denies syncope. He has checked his blood pressure when he feels lightheaded and sometimes his systolic blood pressure runs 100-120 mmHg. His lowest heart rate has been above 60 bpm. He denies any syncope. He denies any dyspnea, paroxysmal nocturnal dyspnea, or orthopnea. He gets some occasional palpitations with a sensation of skipped heartbeats but denies associated symptoms. He denies any lower extremity edema. He has recently been exposed to some mold while he was helping a friend move. He is concerned that this may have contributed to some of his symptoms. He is a lifelong non-smoker. Because of the persistent atrial fibrillation and the chest discomfort, a cardiology consultation was requested. Certain portions of this document may have been dictated utilizing voice recognition technology. Inherent to this technology, typographical and grammatical errors may exist. As much as I am diligent to identify and correct these mistakes, some errors may remain in the document. Review of Systems-Cardiology Review of Systems Other comments Review of 10 organ systems is as per the history of present illness, otherwise negative. MSD-Ildrsp-Pwlbtt Hx Patient Social History Smoking Status: Never a Smoker Have you traveled recently?: No Alcohol Use?: No Pt feels they are or have been: No Past Medical History PMH As described under Assessment. Family Medical History Family Medical History: The patient does not know of any family history of premature coronary artery disease in first-degree relatives. Allergies and Home Medications Allergies Coded Allergies: No Known Drug Allergies (Unverified , 12/12/20) Patient Home Medication List Home Medication List Reviewed: Yes Apixaban (Eliquis) 5 Mg Tablet, 5 MG PO BID, (Reported) Entered as Reported by: RAYMOND RAMOS on 09/08/21 0947 Last Action: New Order Metoprolol Succinate (Metoprolol Succinate) 25 Mg Tab.er.24h, 25 MG PO DAILY, (R eported) Entered as Reported by: RAYMOND RAMOS on 09/08/21 0946 Last Action: New Order Pantoprazole Sodium (Pantoprazole Sodium) 40 Mg Tablet.dr, 40 MG PO DAILY Prescribed by: JAVI MORE JR, MD on 09/08/21 1050 Exam Vital Signs Vital Signs Date Time Temp Pulse Resp B/P (MAP) Pulse Ox O2 Delivery O2 Flow Rate FiO2 09/08/21 08:05 100 Room Air 09/08/21 07:57 36.5 69 22 111/85 (94) Physical Exam General: Alert. No acute distress. Well nourished and appears stated age. Eye: Extraocular movements are intact. Conjunctivae are clear. There are no xanthelasma. HENT: Normocephalic. Atraumatic. Carotid pulsations 2/2 without bruits. Neck: Jugular venous pressure does not appear elevated. No thyromegaly appreciated. Respiratory: Lungs are clear to auscultation. Respirations are non-labored. Breath sounds are equal. Symmetrical chest wall expansion. Cardiovascular: Normal rate. Irregular rhythm. No murmur. No gallop. Point of maximal impulse is not appear displaced. Good pulses equal in all extremities. No edema. Gastrointestinal: Soft. Normal bowel sounds. Skin: Skin turgor is normal. There is no pallor. Musculoskeletal: No kyphosis or scoliosis appreciated. Neurologic: Alert and oriented to person, place, time. Cranial nerves 3-12 appear grossly intact. The patient has good motor tone strength in the upper and lower extremities bilaterally. Psychiatric: Cooperative. Appropriate mood & affect. Labs Laboratory Tests Test 09/07/21 19:55 09/08/21 04:59 Range/Units White Blood Count 5.8 3.8 L 4.3-11.0 10^3/uL Red Blood Count 4.08 L 3.44 L 4.30-5.52 10^6/uL Hemoglobin 9.3 L 7.8 L 13.3-17.7 g/dL Hematocrit 32 L 26 L 40-54 % Mean Corpuscular Volume 77 L 76 L 80-99 fL Mean Corpuscular Hemoglobin 23 L 23 L 25-34 pg Mean Corpuscular Hemoglobin Concent 30 L 30 L 32-36 g/dL Red Cell Distribution Width 16.3 H 16.4 H 10.0-14.5 % Platelet Count 245 198 130-400 10^3/uL Mean Platelet Volume 10.7 10.5 9.0-12.2 fL Immature Granulocyte % (Auto) 0 0 % Neutrophils (%) (Auto) 58 59 42-75 % Lymphocytes (%) (Auto) 32 31 12-44 % Monocytes (%) (Auto) 8 9 0-12 % Eosinophils (%) (Auto) 1 1 0-10 % Basophils (%) (Auto) 1 1 0-10 % Neutrophils # (Auto) 3.4 2.2 1.8-7.8 10^3/uL Lymphocytes # (Auto) 1.8 1.2 1.0-4.0 10^3/uL Monocytes # (Auto) 0.5 0.3 0.0-1.0 10^3/uL Eosinophils # (Auto) 0.1 0.0 0.0-0.3 10^3/uL Basophils # (Auto) 0.1 0.0 0.0-0.1 10^3/uL Immature Granulocyte # (Auto) 0.0 0.0 0.0-0.1 10^3/uL Prothrombin Time 14.2 12.2-14.7 SEC INR Comment 1.1 0.8-1.4 Activated Partial Thromboplast Time 32 24-35 SEC D-Dimer < 0.27 0.00-0.49 UG/ML Sodium Level 139 137 135-145 MMOL/L Potassium Level 4.3 4.1 3.6-5.0 MMOL/L Chloride Level 106 107 98-107 MMOL/L Carbon Dioxide Level 21 21 21-32 MMOL/L Anion Gap 12 9 5-14 MMOL/L Blood Urea Nitrogen 20 H 18 7-18 MG/DL Creatinine 1.05 0.81 0.60-1.30 MG/DL Estimat Glomerular Filtration Rate 69 94 BUN/Creatinine Ratio 19 22 Glucose Level 158 H 101 70-105 MG/DL Calcium Level 8.5 7.9 L 8.5-10.1 MG/DL Corrected Calcium 8.4 L 8.5-10.1 MG/DL Magnesium Level 2.4 1.6-2.4 MG/DL Total Bilirubin 0.3 0.1-1.0 MG/DL Aspartate Amino Transf (AST/SGOT) 30 5-34 U/L Alanine Aminotransferase (ALT/SGPT) 29 0-55 U/L Alkaline Phosphatase 77 40-136 U/L Total Creatine Kinase 267 H 30-200 U/L Creatine Kinase MB 4.6 <6.6 NG/ML Myoglobin 79.1 10.0-92.0 NG/ML Troponin I < 0.028 < 0.028 <0.028 NG/ML B-Type Natriuretic Peptide 335.3 H <100.0 PG/ML Total Protein 6.5 6.4-8.2 GM/DL Albumin 4.1 3.2-4.5 GM/DL Amylase Level 61 25-125 U/L Lipase 32 8-78 U/L Triglycerides Level 44 <150 MG/DL Cholesterol Level 137 < 200 MG/DL LDL Cholesterol Direct 84 1-129 MG/DL VLDL Cholesterol 9 5-40 MG/DL HDL Cholesterol 51 40-60 MG/DL Thyroid Stimulating Hormone (TSH) 1.76 0.35-4.94 UIU/ML ECG Impression ECG Comment Atrial fibrillation with a controlled ventricular rate with nonspecific ST changes. Diagnosis/Problems Diagnosis/Problems (1) Chest pain Status: Acute Assessment & Plan: Exact etiology unclear. He does not have any ischemic changes on his electrocardiogram and he has had 2 negative troponin levels. He does seem to be having some dysphagia. I would question whether or not gastroesophageal reflux disease could be causing at least some of his chest discomfort. I recommend he start on a proton pump inhibitor. Given his age, I recommend he also undergo a nuclear stress test to screen for ischemic heart disease in light of the chest discomfort. He had previously been somewhat reluctant to undergo testing because he was concerned about being in the hospital for the testing and also exposure to electromagnetic frequency. However, given his ongoing chest discomfort, he is now agreeable to testing. I would not start him on aspirin since he is taking apixaban for the atrial fibrillation. I have started him on pantoprazole and sent prescription for the same to his pharmacy. He should continue on metoprolol. I would not necessarily start him on statin medication at this time since his LDL level is quite good on no medication. From a cardiac standpoint, the patient can be discharged home. I will have my office contact him to arrange for an outpatient treadmill nuclear stress test and echocardiogram and then follow-up with me in the office in 1 month. (2) Persistent atrial fibrillation Assessment & Plan: He has had persistent atrial fibrillation dating back to at least December,. He needs an echocardiogram to assess for any valvular heart disease or other structural heart disease that could predispose to atrial fibrillation. We also need to assess his atrial sides to determine whether or not he will be a candidate for rhythm control strategy. For the time being, I recommend he resume metoprolol and apixaban. (3) Primary hypertension Assessment & Plan: Blood pressure appears reasonably controlled with low-dose metoprolol. If he starts having systolic blood pressures below 100 mmHg, we may need to decrease the dose of metoprolol. JAVI MORE JR, MD Sep 08, 2021 10:23
[2021-09-08] MEDS ORDERED: PANTOPRAZOLE 40 MG (PROTONIX) TAB PO ONE (10:30)
[2021-09-08] MEDS ORDERED: PANT40TA52 PO (10:50)
--- NOTE | 2021-09-08 11:41 | Short Stay Summary-Hospitalist ---
History of Present Illness HPI/Chief Complaint Chief complaint: Chest pain History of present illness: This is a 71-year-old white male who has a history of chronic atrial fibrillation on anticoagulation and a history of anemia per patient who presents to the hospital with chest pain. Troponins were negative. Cardiology evaluated him and set him up for an outpatient stress test. No evidence of acute coronary syndrome but needs risk factor stratification. We discussed anemia of which she has had before but noted a significant drop with hemoglobin of 7.8. No blood in the stool and is never had a colonoscopy. He does report some dysphagia so I recommended EGD and colonoscopy as an outpatient and checked iron studies for his primary care provider to review. I suspect some sort of gastrointestinal loss of blood and considering his dysphagia certainly could be gastric cancer. Source: patient Exam Limitations: no limitations Date Seen 09/08/21 Time Seen by a Provider: 11:00 Attending Physician Jon More Jr, MD PCP [place] Referring Physician Date of Admission Sep 07, 2021 at 20:45 Home Medications & Allergies Home Medications Reviewed patient Home Medication Reconciliation performed by pharmacy medication reconciliations lead slot technician and/or nursing. Patients Allergies have been reviewed. Allergies Allergies Coded Allergies No Known Drug Allergies (Unverified12/12/20) Past Scuwpqx-Zvjfnt-Oynncf Hx Patient Social History Marrital Status: single Employed/Student: retired Tobacco Use?: No Smoking Status: Never a Smoker Smokeless Tobacco Frequency: Never a User Use of E-Cig and/or Vaping dev: No Substance use?: No Alcohol Use?: No Alcohol type: Beer Alcohol Frequency: Rarely Pt feels they are or have been: No Immunizations Up To Date First/Initial COVID19 Vaccinat: NO VAX Tetanus Booster (TDap): Less Than 5 Years Current Status Advance Directives: No Communicates: Verbally Primary Language: Filipino Preferred Spoken Language: Filipino Is interpretation needed?: No Implanted or Applied Medical D: None Past Medical History Surgeries: Adenoidectomy, Tonsillectomy Atrial Fibrillation, Hypertension Tonsilitis Blood Disorders: No Family Medical History No Pertinent Family Hx Review of Systems Constitutional: see HPI, malaise, weakness EENTM: other (Dysphagia) Respiratory: no symptoms reported Cardiovascular: chest pain Gastrointestinal: no symptoms reported Genitourinary: no symptoms reported Musculoskeletal: no symptoms reported Skin: no symptoms reported Psychiatric/Neurological: No Symptoms Reported All Other Systems Reviewed Negative Unless Noted: Yes Physical Exam Physical Exam Vital Signs Vital Signs - First Documented 09/07/21 19:52 Temp 36.6 Pulse 89 Resp 20 B/P (MAP) 180/109 (132) Pulse Ox 100 O2 Delivery Room Air Capillary Refill : Less Than 3 Seconds Height, Weight, BMI Height: '" Weight: lbs. oz. kg; 23.11 BMI Method: General Appearance: No Apparent Distress, WD/WN, Anxious (MILDLY ), Chronically ill, Thin HEENT: PERRL/EOMI Neck: Full Range of Motion, Normal Inspection, Non Tender, Supple Respiratory: Chest Non Tender, Normal Breath Sounds, No Accessory Muscle Use, No Respiratory Distress Cardiovascular: No Edema, No JVD, No Murmur, Normal Peripheral Pulses, Irregularly Irregular Gastrointestinal: Normal Bowel Sounds, No Organomegaly, No Pulsatile Mass, Non Tender, Soft Extremity: Normal Capillary Refill, Normal Inspection, Normal Range of Motion, Non Tender, No Calf Tenderness, No Pedal Edema Neurologic/Psychiatric: Alert, Oriented x3, No Motor/Sensory Deficits, chef teacher II- XII Norm as Tested Skin: Normal Color, Warm/Dry Results Results/Procedures Labs Laboratory Tests 09/07/21 19:55 09/08/21 04:59 Patient resulted labs reviewed. 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 currently needs colonoscopy Hyperlipidemia Plan: Discharge home Stress test as an outpatient Needs EGD to pursue dysphagia and colonoscopy to pursue iron deficiency anemia never had a colonoscopy We will reach out to his primary care provider on Friday Final Discharge Diagnosis Assessment: Chest pain without evidence of ACS needs risk factor stratification as an outpatient Mild dysphagia needs EGD as an outpatient placed on PPI Chronic atrial fibrillation Anticoagulation for stroke prophylaxis 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 currently needs colonoscopy Hyperlipidemia Plan: Discharge home Stress test as an outpatient Needs EGD to pursue dysphagia and colonoscopy to pursue iron deficiency anemia never had a colonoscopy We will reach out to his primary care provider on Friday Conclusion Plan Assessment: Chest pain without evidence of ACS needs risk factor stratification as an outpatient Mild dysphagia needs EGD as an outpatient placed on PPI Chronic atrial fibrillation Anticoagulation for stroke prophylaxis 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
[2021-09-08] MEDS ORDERED: IRON150C3 PO (12:14)
[2021-09-08 12:28] VITALS: BP 105/76
[2021-09-08] MEDS ORDERED: APIXABAN 5 MG (ELIQUIS) TABLET PO SCH (21:00)
[2021-09-09] MEDS ORDERED: PANTOPRAZOLE 40 MG (PROTONIX) TAB PO SCH (09:00)
== END 2021-09-08 12:30 | disposition home or self-care (01) ==
LOC: EDUNIT# 19:45 → ER 19:47 → CSD 20:45
PROVIDERS: ADMIT Internal Medicine Cardiovascular Disease; ATTEND Internal Medicine Cardiovascular Disease
DX: R07.89 Other chest pain (principal); I48.20 Chronic atrial fibrillation, unspecified; R13.10 Dysphagia, unspecified; I10 Essential (primary) hypertension; D50.0 Iron deficiency anemia secondary to blood loss (chronic); E78.5 Hyperlipidemia, unspecified; Z79.01 Long term (current) use of anticoagulants; Z79.899 Other long term (current) drug therapy
CPT/HCPCS: 36415; 71045; 80048; 80053; 80061; 82150; 82550; 82553; 82607; 82728; 83036; 83540; 83690; 83735; 83874; 83880; 84443; 84484; 85025; 85379; 85610; 85730; 93005; 93041

== ENCOUNTER → 2021-09-19 | Outpatient (CLI) | payer MEDICARE, OTHER ==
[~2021-09-19] MED LIST: APIX5TAB PO; IRON150C3 PO; MTP25TSR PO; PANT40TA52 PO
== END ==
LOC: CARD 14:00
PROVIDERS: ATTEND Internal Medicine Cardiovascular Disease
DX: I08.0 Rheumatic disorders of both mitral and aortic valves (principal); I48.0 Paroxysmal atrial fibrillation; I25.10 Atherosclerotic heart disease of native coronary artery without angina pectoris
CPT/HCPCS: 93306

== ENCOUNTER → 2021-09-20 | Outpatient (CLI) | payer MEDICARE, OTHER ==
[~2021-09-20] VITALS: Ht 180 cm; Wt 76.0 kg
[~2021-09-20] MED LIST changes: +CATHETER FLUSH 10 ML SYR IV PRN
[2021-09-20 09:39] VITALS: BP 139/105
--- NOTE | 2021-09-20 12:56 | NUCLEAR STRESS TEST ---
TREADMILL NUCLEAR STRESS TEST Date of procedure: 09/20/2021. Primary care provider: [facility]. Admitting physician: Jon More Jr., MD. INDICATION: Paroxysmal atrial fibrillation. BASELINE ELECTROCARDIOGRAM: Atrial fibrillation with a ventricular rate of 68 bpm. STRESS TEST PROCEDURE: The patient was exercised for a total of 2 minutes and 50 seconds of the standard Kong protocol achieving a maximum MET level of 4.4. The resting heart rate was 68 bpm and the peak heart rate was 159 bpm, which represents 107% of the maximum predicted heart rate. The resting blood pressure was 139/105 mmHg and the peak blood pressure was 174/89 mmHg. This represents a tachycardic heart rate and a normal blood pressure response to exercise. The test was stopped due to fatigue. There was no chest discomfort during the test. The patient was in atrial fibrillation for the duration of the test. There were no significant stress induced electrocardiogram changes. The patient exhi bited fair exercise capacity for age. NUCLEAR PROCEDURE: The patient was administered 11 mCi of intravenous technetium 99m Tetrofosmin at rest for the rest images. The patient was subsequently administered 28.5 mCi of intravenous technetium 99 M Tetrofosmin at peak stress for the stress images. Following an appropriate wait after each injection, imaging was obtained. The images were subsequently processed and reformatted in the usual views. Gated imaging was obtained. The image quality was adequate wi th a mild degree of gastrointestinal attenuation artifact. CT attenuation correction was used as a adjunct to standard imaging. Both the corrected and uncorrected images were reviewed for interpretation. NUCLEAR RESULTS: There was normal myocardial perfusion in all segments without evidence of infarction or ischemia. There was normal left ventricular chamber size with an end-diastolic volume of 91 mL and an end-systolic volume of 44 mL. There was no evidence of transient ischemic dilatation. The TID ratio was 1.05. There was normal wall motion in all segments with a calculated ejection fraction of 52%. IMPRESSION: 1. Tachycardic heart rate and a normal blood pressure response to exercise. 2. There was no chest discomfort during the test. 3. The patient was in atrial fibrillation for the duration of the test. 4. There were no exercise-induced electrocardiogram changes. 5. The patient exhibited fair exercise capacity for age at 2 minutes and 50 seconds of the Kong protocol. 6. There was normal myocardial perfusion in all segments without evidence of infarction or ischemia. 7. There was normal wall motion in all segments with a calculated ejection fraction of 52%. Certain portions of this document may have been dictated utilizing voice recognition technology. Inherent to this technology, typographical and grammatical errors may exist. As much as I am diligent to identify and correct these mistakes, some errors may remain in the document. JON MORE JR, MD Sep 20, 2021 12:56
== END ==
LOC: CARD 08:15
PROVIDERS: ATTEND Internal Medicine Cardiovascular Disease
DX: I48.0 Paroxysmal atrial fibrillation (principal)
CPT/HCPCS: 78452; 93017; A9502

== ENCOUNTER 2023-08-22 18:52 | Emergency (ER) | payer MEDICARE ==
[~2023-08-22 18:52] MED LIST changes: -CATHETER FLUSH 10 ML SYR IV PRN
--- NOTE | 2023-08-22 19:15 | ED Cardiac General ---
History of Present Illness General Chief Complaint: Chest Pain Stated Complaint: POSS HYPERTENSION CRISIS Source: patient Exam Limitations: no limitations History of Present Illness Date Seen by Provider: Aug 22, 2023 Time Seen by Provider: 19:15 Initial Comments Patient is a 73yo male who presents to the ER with a complaint of elevated BP this evening. He is on metoprolol and has a history of afib remotely - still on blood thinner and flecainde. He follows at [facility]. He tells me that he is very "sensitive" to electromagnetic frequencies and finds that being in areas with high electromagnetic energy affect his blood pressure and how he feels. He also has been under increased stress the last week with the of an aunt and uncle in the last 4-5 days. He has had some "chest pain" since [facility] this morning and points to the left chest just inferior to the shoulder. He is not really SOB or nauseated. No sweating or palpitations. No recent illnesses, fever, cough, diarrhea or urinary complaints. He also takes many "supplements" and OTC vitamins. Has a very health diet with organic foods. Denies recent increased salt intake - but has been taking "electrolyte replacement in the last month. For the last week he has been keeping a log of his BP and it was running 98 systolic to 105. today at presentation his SYstolic is 225. Timing/Duration: 12 hours Severity: moderate Location: other (left low ant shoulder) NTG SL TEST DRILLER: No ASA po TEST DRILLER: No Associated Systoms: Denies Symptoms Allergies and Home Medications Allergies Coded Allergies: No Known Drug Allergies (Unverified , 12/12/20) Patient Home Medication List Home Medication List Reviewed: Yes Apixaban (Eliquis) 5 Mg Tablet, 5 MG PO BID, (Reported) Entered as Reported by: RAYMOND RAMOS on 09/08/21 0947 Iron Polysaccharide Complex (Ferrex 150) 150 Mg Capsule, 150 MG PO Q48H Prescribed by: AKI CORDERO on 09/08/21 1214 Metoprolol Succinate (Metoprolol Succinate) 25 Mg Tab.er.24h, 25 MG PO DAILY, (Reported) Entered as Reported by: RAYMOND RAMOS on 09/08/21 0946 Pantoprazole Sodium (Pantoprazole Sodium) 40 Mg Tablet., 40 MG PO DAILY Prescribed by: JAVI KEITH JR, MD on 09/08/21 1050 Review of Systems Review of Systems Constitutional: see HPI EENTM: No Symptoms Reported Respiratory: No Symptoms Reported Cardiovascular: Chest Pain Gastrointestinal: No Symptoms Reported Genitourinary: No Symptoms Reported Musculoskeletal: no symptoms reported Skin: no symptoms reported Psychiatric/Neurological: No Symptoms Reported All Other Systems Reviewed Negative Unless Noted: Yes Past Mammgca-Ucletl-Vuhyvt Hx Immunizations Up To Date First/Initial COVID19 Vaccinat: NO VAX Past Medical History Surgery/Hospitalization HX: SX: T&A, R THUMB PMH: AFIB, ARTHRITIS Surgeries: Yes Adenoidectomy, Tonsillectomy Respiratory: No Cardiac: Yes Atrial Fibrillation, Hypertension Neurological: No Genitourinary: No Gastrointestinal: No Musculoskeletal: No Endocrine: No HEENT: Yes (S/P T&A) Tonsilitis Cancer: No Psychosocial: No Integumentary: No Blood Disorders: No Family Medical History No Pertinent Family Hx Physical Exam Vital Signs Vital Signs - First Documented 08/22/23 19:08 Temp 36.0 Pulse 73 Resp 16 B/P (MAP) 211/126 (154) Pulse Ox 97 O2 Delivery Room Air Capillary Refill : Height, Weight, BMI Height: '" Weight: lbs. oz. kg; 23.45 BMI Method: General Appearance: No Apparent Distress, WD/WN, Thin HEENT: PERRL/EOMI Neck: Normal Inspection, Supple Respiratory: Lungs Clear, Normal Breath Sounds, No Accessory Muscle Use, No Respiratory Distress Cardiovascular: Regular Rate, Rhythm, Normal Peripheral Pulses Gastrointestinal: Non Tender, Soft Extremity: Normal Capillary Refill, Normal Inspection, Normal Range of Motion, No Pedal Edema Neurologic/Psychiatric: Alert, Oriented x3, No Motor/Sensory Deficits, Normal Mood/Affect Skin: Normal Color, Warm/Dry Progress/Results/Core Measures Results/Orders Lab Results Laboratory Tests Test 08/22/23 19:10 Range/Units White Blood Count 5.8 4.3-11.0 10^3/uL Red Blood Count 4.08 L 4.30-5.52 10^6/uL Hemoglobin 13.7 13.3-17.7 g/dL Hematocrit 41 40-54 % Mean Corpuscular Volume 100 H 80-99 fL Mean Corpuscular Hemoglobin 34 25-34 pg Mean Corpuscular Hemoglobin Concent 34 32-36 g/dL Red Cell Distribution Width 13.2 10.0-14.5 % Platelet Count 182 130-400 10^3/uL Mean Platelet Volume 10.7 9.0-12.2 fL Immature Granulocyte % (Auto) 0 % Neutrophils (%) (Auto) 60 42-75 % Lymphocytes (%) (Auto) 30 12-44 % Monocytes (%) (Auto) 9 0-12 % Eosinophils (%) (Auto) 1 0-10 % Basophils (%) (Auto) 1 0-10 % Neutrophils # (Auto) 3.5 1.8-7.8 10^3/uL Lymphocytes # (Auto) 1.7 1.0-4.0 10^3/uL Monocytes # (Auto) 0.5 0.0-1.0 10^3/uL Eosinophils # (Auto) 0.0 0.0-0.3 10^3/uL Basophils # (Auto) 0.1 0.0-0.1 10^3/uL Immature Granulocyte # (Auto) 0.0 0.0-0.1 10^3/uL Prothrombin Time 15.1 H 12.2-14.7 SEC INR Comment 1.2 0.8-1.4 Activated Partial Thromboplast Time 36 H 24-35 SEC Sodium Level 138 135-145 MMOL/L Potassium Level 4.9 3.6-5.0 MMOL/L Chloride Level 103 98-107 MMOL/L Carbon Dioxide Level 23 21-32 MMOL/L Anion Gap 12 5-14 MMOL/L Blood Urea Nitrogen 23 H 7-18 MG/DL Creatinine 1.24 0.60-1.30 MG/DL Estimat Glomerular Filtration Rate 61 BUN/Creatinine Ratio 19 Glucose Level 184 H 70-105 MG/DL Calcium Level 8.8 8.5-10.1 MG/DL Corrected Calcium 8.6 8.5-10.1 MG/DL Magnesium Level 2.6 H 1.6-2.4 MG/DL Total Bilirubin 0.5 0.1-1.0 MG/DL Aspartate Amino Transf (AST/SGOT) 64 H 5-34 U/L Alanine Aminotransferase (ALT/SGPT) 69 H 0-55 U/L Alkaline Phosphatase 84 40-136 U/L Troponin I < 0.028 <0.028 NG/ML Total Protein 6.7 6.4-8.2 GM/DL Albumin 4.2 3.2-4.5 GM/DL My Orders Orders - BILL BILLINGS MD Ekg Tracing (08/22/23 19:13) Cbc And Automated Diff (08/22/23:) Magnesium (08/22/23:) Chest 1 View, Ap/Pa Only (08/22/23:) Comprehensive Metabolic Panel (08/22/23:) Protime With Inr (08/22/23:) Partial Thromboplastin Time (08/22/23) O2 (08/22/23:) Monitor-Rhythm Ecg Trace Only (08/22/23:) Ed Iv/Invasive Line Start (08/22/23:) Troponin I Cordelia (08/22/23) Vital Signs/I&O 08/22/23 08/22/23 19:08 20:40 Temp 36.0 36.0 Pulse 73 60 Resp 16 16 B/P (MAP) 211/126 (154) 163/101 Pulse Ox 97 99 O2 Delivery Room Air Room Air Progress Progress Note : Time: 20:00 Progress Note Patient seen and evaluated by me. Eval today includes physical exam, "chest pain" protocol - to include CBC, CMP, Mag, trop, coags, EKG, CXR. Pertinent phy sical exam findings include Thin older male NAD. hypertensive. afebrile. normal oxygen. Lungs clear. Heart regular. Abd soft. no LE edema.. ddx includes hypertensive emergency, ACS, acute kidney injury/dehydration. Patient reassessed about 20min after initial eval and BP had come down on it's own to 165 systolic. He required no intervention for BP control. Labs reviewed and interpreted by me. CBC is normal. CHem remarakable for increased glucose at 184, slightly elevated LFT with AST of 64 and ALT of 69. His coags are a little up consistent with his elequis. EKG with 1st degree AVB no ST segment change and CXR unremarkable. I had a discussion with the patient about continuing to mon itor his BP. He has a follow up appointment next week with his P[facility]. I think a single troponin is adequate to rule out ACS as he has had the chest "discomfort" since waking up. His BP has been hovering now around 160-170. Much better than the initial 225 systolic. I provided return precautions. No clinical indications to warrant admission at this time. He is comfortable with discharge. All questions are sought and answered. Initial ECG Impression Date: Aug 23, 2023 Initial ECG Impression Time: 19:20 Initial ECG Rate: 74 Initial ECG Rhythm: Normal Sinus Initial ECG Intervals MD 2554 QRS [address] elevation or depression; Prolonged MD and QRS - conduction delay - 1st depgree AVB Diagnostic Imaging Diagonstic Imaging: Xray Plain Films/CT/US/NM/MRI: chest Comments [facility] [place], [place] NAME: ROBERT BOWERS [facility] REC#: [id number] PT STATUS: REG ER : 1950 PHYSICIAN: BILL BILLINGS MD ADMIT DATE: 08/22/23/ER Signed Date of Exam:08/22/23 CHEST 1 VIEW, AP/PA ONLY INDICATION: Chest pain, left-sided. Frontal chest obtained at 7:58 p.m. and compared to 09/07/2021. Heart is borderline in size. Mediastinal silhouette is unremarkable. The lungs are clear. There is no pneumothorax or pleural fluid. IMPRESSION: Mild cardiomegaly with no acute process in the chest. Dictated by: Dictated on workstation # [id number] Dict: 08/22/231958 Trans: 08/22/232033 CV [id number] Interpreted by: TIMOTHY MAK MD Electronically signed by: TIMOTHY MAK MD 08/22/232033 Departure Impression Primary Impression: Hypertensive urgency Disposition: 01 HOME, SELF-CARE Condition: Improved Departure-Patient Inst. Decision time for Depature: 20:09 Referrals: [facility] (PCP/Family) Primary Care Physician LES FLOWER MD [facility] NATALYA SWAN MD Patient Instructions: High blood pressure emergencies Add. Discharge Instructions: Continue to drink plenty of fluids to stay well hydrated. Keep taking your blood pressure medications as prescribed. It may be a good idea to have a follow up appointment with a roller machine operator, perhaps you can come off the blood thinner and eliquis after a visit with them. If you develop a severe headache, shortness of breath or worsening chest pain with return of high blood pressure - please return to the Emergency Department for re-evaluation. I have put contact information for our Cardiologists on this paperwork. Images Torso/Trunk 1 - Other-See Progress Note Copy Copies To 1: GARRY AIKEN KATHRYN M MD Aug 22, 2023 19:15
[2023-08-22 19:37] LABS: BASOPHILS # (AUTO) 0.1 10^3/uL (0.0-0.1); BASOPHILS % (AUTO) 1 % (0-10); EOSINOPHILS % (AUTO) 1 % (0-10); HEMATOCRIT 41 % (40-54); HEMOGLOBIN 13.7 g/dL (13.3-17.7); LYMPHOCYTES # (AUTO) 1.7 10^3/uL (1.0-4.0); LYMPHOCYTES % (AUTO) 30 % (12-44); MEAN CORPUSCULAR HEMOGLOBIN 34 pg (25-34); MEAN CORPUSCULAR HGB CONC 34 g/dL (32-36); MEAN CORPUSCULAR VOLUME 100 fL (80-99); MEAN PLATELET VOLUME 10.7 fL (9.0-12.2); MONOCYTES # (AUTO) 0.5 10^3/uL (0.0-1.0); MONOCYTES % (AUTO) 9 % (0-12); NEUTROPHILS # (AUTO) 3.5 10^3/uL (1.8-7.8); NEUTROPHILS % (AUTO) 60 % (42-75); PLATELET COUNT 182 10^3/uL (130-400); WHITE BLOOD COUNT 5.8 10^3/uL (4.3-11.0)
[2023-08-22 19:41] LABS: ALBUMIN 4.2 GM/DL (3.2-4.5); CHLORIDE 103 MMOL/L (98-107); POTASSIUM 4.9 MMOL/L (3.6-5.0); SODIUM 138 MMOL/L (135-145)
[2023-08-22 19:42] LABS: CALCIUM 8.8 MG/DL (8.5-10.1)
[2023-08-22 19:43] LABS: GLUCOSE 184 MG/DL (70-105); INR 1.2 (0.8-1.4); PROTHROMBIN TIME PATIENT 15.1 SEC (12.2-14.7); TOTAL PROTEIN 6.7 GM/DL (6.4-8.2)
[2023-08-22 19:44] LABS: CARBON DIOXIDE 23 MMOL/L (21-32)
[2023-08-22 19:45] LABS: BILIRUBIN,TOTAL 0.5 MG/DL (0.1-1.0)
[2023-08-22 19:47] LABS: ALKALINE PHOSPHATASE 84 U/L (40-136); CREATININE SERUM 1.24 MG/DL (0.60-1.30); GFR ESTIMATED 61
[2023-08-22 19:48] LABS: BUN/CREATININE RATIO 19
[2023-08-22 19:49] LABS: MAGNESIUM 2.6 MG/DL (1.6-2.4)
[2023-08-22 19:50] LABS: ALANINE AMINOTRANSFERASE 69 U/L (0-55)
--- NOTE | 2023-08-22 20:13 | Diagnostic Imaging Report ---
INDICATION: Chest pain, left-sided. Frontal chest obtained at 7:58 p.m. and compared to 09/07/2021. Heart is borderline in size. Mediastinal silhouette is unremarkable. The lungs are clear. There is no pneumothorax or pleural fluid. IMPRESSION: Mild cardiomegaly with no acute process in the chest. Dictated by: Dictated on workstation # [id number]
[2023-08-22 20:40] VITALS: BP 163/101
== END 2023-08-22 20:40 | disposition home or self-care (01) ==
LOC: EDUNIT# 18:52 → ER 18:57
DX: I16.0 Hypertensive urgency (principal); I44.0 Atrioventricular block, first degree; I48.91 Unspecified atrial fibrillation; Z79.01 Long term (current) use of anticoagulants; Z79.899 Other long term (current) drug therapy; Z28.310 Unvaccinated for COVID-19
CPT/HCPCS: 36415; 71045; 80053; 83735; 84484; 85025; 85610; 85730; 93005; 93041